=== PATIENT | female | born 2000 | race Two or more races ===

== ENCOUNTER 2021-12-18 00:50 | Emergency (ER) | payer SELFPAY ==
[~2021-12-18] VITALS: Ht 152.4 cm; Wt 37.6 kg
[2021-12-18 01:41] LABS: BASO % 1 % (0-3); EOS % 1 % (0-3); HEMATOCRIT 42.6 % (36.0-47.0); HEMOGLOBIN 14.9 g/dL (12.0-15.5); LYMPH # 2.5 x10^3/uL (1.0-4.8); LYMPH % 49 % (24-48); MEAN CORPUSCULAR HEMOGLOBIN 31 pg (25-35); MEAN CORPUSCULAR HGB CONC 35 g/dL (31-37); MEAN CORPUSCULAR VOLUME 89 fL (79-100); MONO # 0.3 x10^3/uL (0.0-1.1); MONO % 7 % (0-9); NEUT # 2.2 x10^3/uL (1.8-7.7); NEUT % 44 % (31-73); PLATELET COUNT 251 x10^3/uL (140-400); RED BLOOD COUNT 4.79 x10^6/uL (3.50-5.40); RED CELL DISTRIBUTION WIDTH 12.7 % (11.5-14.5); WHITE BLOOD COUNT 5.1 x10^3/uL (4.0-11.0)
--- NOTE | 2021-12-18 01:45 | PHYS DOC ---
Past Medical History Past Medical History: No Pertinent History Past Surgical History: No Surgical History Smoking Status: Never Smoker Alcohol Use: None Drug Use: None General Adult EDM: Chief Complaint: NAUSEA/VOMITING/DIARRHEA HPI: HPI: 21-year-old female presents with report of nausea and vomiting with substernal chest and epigastric abdominal pain that has been progressing for the last 3 weeks. Patient reports symptoms worse today. Patient unable to keep food or drink down secondary to discomfort. Patient reports sensation of shortness of breath. Reports some dizziness. Reports pain when she vomits. Reports it is a dull ache. Denies any leg swelling or calf tenderness. Denies pleuritic pain. Denies known sick contacts. Patient reports she is currently on her menstrual cycle. 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 Review of Systems: Review of Systems: Constitutional: Denies fever or chills Eyes: Denies redness or eye pain HENT: Denies nasal congestion or sore throat Respiratory: Denies cough; reports shortness of breath Cardiovascular: Reports substernal chest pain; denies palpitations GI: Reports epigastric abdominal pain, nausea, and vomiting : Denies dysuria or hematuria Musculoskeletal: Denies back pain or joint pain Integument: Denies rash or skin lesions Neurologic: Denies headache, focal weakness or sensory changes; reports dizziness Complete systems were reviewed and found to be within normal limits, except as documented in this note. Heart Score: C/O Chest Pain: Yes HEART Score for Chest Pain: HEART Score for Chest Pain Response (Comments) Value History Slighlty/Non-Suspicious 0 ECG Normal 0 Age < 45 0 Risk Factors No Risk Factors 0 Troponin < Normal Limit 0 Total 0 Risk Factors: Risk Factors: DM, Current or recent (<one month) smoker, HTN, HLP, family history of CAD, obesity. Risk Scores: Score 0 - 3: 2.5% MACE over next 6 weeks - Discharge Home Score 4 - 6: 20.3% MACE over next 6 weeks - Admit for Clinical Observation Score 7 - 10: 72.7% MACE over next 6 weeks - Early Invasive Strategies Current Medications: Current Medications Medications (Trade) Dose Ordered Sig/Lizzette Start Time Stop Time Status Last Admin Dose Admin Famotidine (Pepcid Vial) 20 mg 1X ONCE 12/18/21 02:00 12/18/21 02:01 Ketorolac Tromethamine (Toradol 15mg Vial) 15 mg 1X ONCE 12/18/21 02:00 12/18/21 02:01 Ondansetron HCl (Zofran) 4 mg 1X ONCE 12/18/21 02:00 12/18/21 02:01 Sodium Chloride 1,000 ml @ 1,000 mls/hr 1X ONCE 12/18/21 02:00 12/18/21 02:59 12/18/21 01:41 1,000 MLS/HR Allergies: Allergies: Allergies Coded Allergies Type Severity Reaction Last Updated Verified No Known Drug Allergies 12/18/21 No Physical Exam: PE: Constitutional: Well developed, ill but non-toxic appearance HENT: Normocephalic, atraumatic Eyes: Conjunctiva normal, no discharge Neck: Normal range of motion, no tenderness, supple Lungs & Thorax: No respiratory distress, equal chest rise and fall, clear to auscultation bilaterally Cardiovascular: Regular rate and rhythm, no murmur Abdomen: Soft, epigastric tenderness Skin: Warm, dry, no erythema, no rash Extremities: No tenderness, ROM intact, no edema Neurologic: Alert and oriented X 3, no focal deficits noted Psychologic: Affect normal, judgment normal Current Patient Data: Vital Signs: Vital Signs Date Time Temp Pulse Resp B/P (MAP) Pulse Ox O2 Delivery O2 Flow Rate FiO2 12/18/21 01:01 98.5 74 20 117/85 (96) 99 Room Air 98.5 EKG: EKG: @0138 NSR at 72bpm, J point elevation noted to II and V5-V6, no reciprocal ST depression noted, QRS 74ms, QT/QTc 358/393ms Radiology/Procedures: Radiology/Procedures: PROCEDURE: CT CHEST ABD PELVIS W/CONTRAST PQRS Compliance Statement: One or more of the following individualized dose reduction techniques were utilized for this examination: 1. Automated exposure control 2. Adjustment of the mA and/or kV according to patient size 3. Use of iterative reconstruction technique CT CHEST+ABD+PELVIS W Clinical Indication: Reason: substernal/epigastric pain with N/V;OMNI 300,75ML / Spl. Instructions: / History: Comparison: None. Technique: Helical CT imaging of the chest, abdomen and pelvis is performed after 75 cc of Omnipaque 300 IV contrast. Oral contrast not administered. Findings: No aortic dissection or central pulmonary embolus. Great vessels are normal caliber. There is residual thymus in the anterior mediastinum, normal for a patient of this age. There is no mediastinal mass or adenopathy. There is no hilar adenopathy. The cardiac size is normal, and epicardial effusion. Respiratory motion artifact. The central airways are patent. There is no pleural abnormality. The lungs are essentially clear. The liver, gallbladder, spleen, pancreas, adrenal glands, abdominal aorta, and kidneys are normal. Stomach is decompressed, limiting evaluation. There is no evidence of bowel obstruction. Appendix is not identified, no secondary signs of appendicitis. The uterus is retroverted. Urinary bladder is essentially completely decompressed limiting evaluation. No pelvic free fluid is seen. No appreciable pelvic free fluid is seen. No acute bone abnormality. IMPRESSION: No acute abnormality in the chest, abdomen, or pelvis. Electronically signed by: Chau Fernando MD (12/18/2021 3:33 AM) [facility] Course & Med Decision Making: Course & Med Decision Making Pertinent Labs and Imaging studies reviewed. (See chart for details) [id number] patient presents with 3-week history of progressive substernal and epigastric pain with associated nausea and vomiting. Worse with eating. Patient denies known sick contacts. Patient actively dry heaving upon arrival. Symptomatic treatment provided. IV fluid hydration given. EKG stable. Labs obtained and posted to chart. Hypokalemia addressed. CT chest/abdomen/pelvis obtained without acute findings. HEART score 0. Patient stable for discharge with outpatient follow-up with PCP/GI. GI referral provided. Discussed findings and plan with patient and family, who acknowledge understanding and agreement. Judah Disclaimer: Judah Disclaimer: This electronic medical record was generated, in whole or in part, using a voice recognition dictation system. Departure Departure Impression: Primary Impression: Intractable nausea and vomiting Additional Impression: Hypokalemia Disposition: 01 HOME / SELF CARE / HOMELESS Condition: STABLE Referrals: ALEXYS TOLBERT MD Patient Instructions: Clear Liquid Diet, [id number], Hypokalemia, Nausea and Vomiting, [id number], Potassium Content of Foods Additional Instructions: Start with clear liquid diet and advance as tolerated. Increase fluid hydration. Scripts Famotidine (PEPCID) 20 Mg Tablet 20 MG PO BID, #14 TAB Prov: ILEANA REILLY DO 12/18/21 Ondansetron (ONDANSETRON ODT) 4 Mg Tab.rapdis 1 TAB PO PRN Q6-8HRS PRN for NAUSEA, #16 TAB Prov: ILEANA REILLY DO 12/18/21 ILEANA REILLY DO December 18, 2021 01:45
--- NOTE | 2021-12-18 01:50 | EKG ---
[facility] [address] [place] [id number] Test Date: 2021-12-18 Test Time: 01:38:25 Pat Name: SLAVA JONES Department: Room: Gender: F [employer]: : 2000 Requested By: ILEANA REILLY Order Number: [id number] Reading MD: Karsten Arguello MD Measurements Intervals [place] Rate: 72 P: 0 [place]: 124 QRS: 71 QRSD: 74 T: 36 QT: 358 QTc: 393 Interpretive Statements SINUS RHYTHM Electronically Signed On 12-18-2021 8:49:40 CDT by Karsten Arguello MD
[2021-12-18 01:58] LABS: ALBUMIN 4.1 g/dL (3.4-5.0); ALBUMIN/GLOBULIN RATIO 1.2 (1.0-1.7); CALCIUM 8.6 mg/dL (8.5-10.1); CREATININE 0.7 mg/dL (0.6-1.0); GFR 103.7; TOTAL BILIRUBIN 0.8 mg/dL (0.2-1.0); TOTAL PROTEIN 7.6 g/dL (6.4-8.2)
[2021-12-18 01:59] LABS: POTASSIUM 2.9 mmol/L (3.5-5.1)
[2021-12-18] MEDS ORDERED: FAMOTIDINE 20 MG/2 ML VIAL IVP ONE (02:00)
[2021-12-18] MEDS ORDERED: KETOROLAC 15 MG/ML VIAL. IV ONE (02:00)
[2021-12-18] MEDS ORDERED: IV NORMAL SALINE 1000ML BAG 1,000 ML IV ONE (02:00)
[2021-12-18] MEDS ORDERED: ONDANSETRON PF 4 MG/2 ML VIAL. IVP ONE ×2 (02:00→04:00)
[2021-12-18 02:05] LABS: CREATINE KINASE 50 U/L (26-192)
[2021-12-18 02:21] LABS: BACTERIA,URINE FEW /HPF (0-FEW)
[2021-12-18] MEDS ORDERED: CONTRAST GIVEN. MC PRN (02:30)
[2021-12-18] MEDS ORDERED: IOHEXOL 300 MG/ML 100ML VIAL. IV ONE (03:00)
--- NOTE | 2021-12-18 03:35 | RAD ---
PQRS Compliance Statement: One or more of the following individualized dose reduction techniques were utilized for this examinat ion: 1. Automated exposure control 2. Adjustment of the mA and/or kV according to patient size 3. Use of iterative reconstruction technique CT CHEST+ABD+PELVIS W Clinical Indication: Reason: substernal/epigastric pain with N/V;OMNI 300,75ML / Spl. Instructions: / History: Comparison: None. Technique: Helical CT imaging of the chest, abdomen and pelvis is performed after 75 cc of Omnipaque 300 IV contrast. Oral contrast not administered. Findings: No aortic dissection or central pulmonary embolus. Great vessels are normal caliber. There is residua l thymus in the anterior mediastinum, normal for a patient of this age. There is no mediastinal mass or adenopathy. There is no hilar adenopathy. The cardiac size is normal, and epicardial effusion. Respiratory motion artifact. The central airways are patent. There is no pleural abnormality. The gemini gs are essentially clear. The liver, gallbladder, spleen, pancreas, adrenal glands, abdominal aorta, and kidneys are normal. Stomach is decompressed, limiting evaluation. There is no evidence of bowel obstruction. Appendix is not identified, no secondary signs of appendicitis. The uterus is retroverted. Urinary bladder is essentially completely decompressed limiting evaluation . No pelvic free fluid is seen. No appreciable pelvic free fluid is seen. No acute bone abnormality. IMPRESSION: No acute abnormality in the chest, abdomen, or pelvis. Electronically signed by: Chau Fernando MD (12/18/2021 3:33 AM) [facility]
[2021-12-18] MEDS ORDERED: ONDA4TAB12 PO (03:45)
[2021-12-18] MEDS ORDERED: FAMO-63 PO (03:45)
[2021-12-18] MEDS ORDERED: POTASSIUM CHLORIDE 10 MEQ TABLET.ER. PO ONE (04:00)
[2021-12-18 04:34] VITALS: BP 138/79
[2021-12-18] MEDS ORDERED: METOCLOPRAMIDE HCL 10 MG/2 ML VIAL. IVP ONE (05:00)
[2021-12-18] MEDS ORDERED: diphenhydrAMINE 50 MG/ML VIAL IVP ONE (05:00)
== END 2021-12-18 04:36 | disposition home or self-care (01) ==
LOC: ER 00:50
DX: E87.6 Hypokalemia (principal); R07.2 Precordial pain; R10.13 Epigastric pain
CPT/HCPCS: 36415; 71260; 74177; 80053; 81001; 81025; 82553; 83690; 83735; 84484; 85025; 87086; 93005; 96361; 96374; 96375; 96376; 99285; J1200; J1885; J2405; J2765; J3490; J7030; Q9967